=== PATIENT | female | born 1955 | race Caucasian/White ===

== ENCOUNTER 2016-10-31 08:27 | Outpatient (CLI) | payer BC ==
[2016-10-31 08:56] LABS: BASOPHILS % 0.4 (0.0-1.5); EOSINOPHILS % 4.5 % (0.0-6.8); LYMPHOCYTES # 1.4 # k/uL (0.6-4.0); MEAN CORPUSCULAR HEMOGLOBIN 32.9 pg (28.0-34.0); MONOCYTES # 0.2 # k/uL (0.0-0.9); MONOCYTES % 4.8 % (0.0-11.0); NEUTROPHILS # 2.7 # k/uL (1.4-7.7)
[2016-10-31 09:30] LABS: eGFR (African) > 60; eGFR (Non-African) > 60
--- NOTE | 2016-10-31 14:33 | Diagnostic Imaging Report ---
[facility] [id number] [facility].[address] [address] Report Submission Date: Oct 31, 2016 9:34:19 AM RESISTANCE WELDING MACHINE OPERATOR Patient Study Name: HAILE MONTES Date: Oct 31, 2016 8:43:18 AM RESISTANCE WELDING MACHINE OPERATOR Modality Type: CR Gender: F Description: LOWER EXTREMITY : 55 Institution: [facility] Physician SOLEDAD ARGUETA - AYAKA Right knee -two views CLINICAL HISTORY: Chronic pain. FINDINGS: Examination right knee in AP and lateral views demonstrates degenerative changes with narrowing of the joint space worse laterally. There are small lateral and medial osteophytes. Tibial spines are prominent. Patellofemoral space is narrowed with osteophyte formation. There is no fracture. There is mild fullness in suprapatellar region consistent with joint effusion. IMPRESSION: Degenerative changes and joint effusion. No fracture. Electronically signed on Oct 31, 2016 9:34:19 AM RESISTANCE WELDING MACHINE OPERATOR by: Kwasi DE LA GARZA
== END 2016-10-31 08:30 ==
LOC: LAB 08:27
PROVIDERS: ATTEND Family Medicine
DX: M25.561 Pain in right knee (principal); E03.9 Hypothyroidism, unspecified; R53.83 Other fatigue; E78.2 Mixed hyperlipidemia; M25.461 Effusion, right knee
CPT/HCPCS: 36415; 73560; 80053; 80061; 84443; 85025

== ENCOUNTER 2017-11-27 16:05 | Outpatient (CLI) | payer BC ==
[2017-11-27 16:23] LABS: MEAN CORPUSCULAR HEMOGLOBIN 33.9 pg (28.0-34.0); MEAN CORPUSCULAR VOLUME 103.7 fl (80.0-100.0)
[2017-11-27 17:01] LABS: eGFR (African) > 60; eGFR (Non-African) > 60
== END 2017-11-27 16:06 ==
LOC: LAB 16:05
PROVIDERS: ATTEND Family Medicine
DX: E03.9 Hypothyroidism, unspecified (principal); E11.9 Type 2 diabetes mellitus without complications; R79.89 Other specified abnormal findings of blood chemistry
CPT/HCPCS: 36415; 80053; 80061; 80074; 83036; 84443; 85027; 85610; 85730

== ENCOUNTER 2017-12-06 10:28 | Outpatient (CLI) | payer BC ==
[2017-12-06 11:24] LABS: eGFR (African) > 60; eGFR (Non-African) 44
== END 2017-12-06 10:30 ==
LOC: LAB 10:28
PROVIDERS: ATTEND Student in an Organized Health Care Education/Training Program
DX: R74.8 Abnormal levels of other serum enzymes (principal)
CPT/HCPCS: 36415; 80053

== ENCOUNTER 2017-12-18 14:37 | Outpatient (CLI) | payer BC ==
[2017-12-18 15:18] LABS: eGFR (African) > 60; eGFR (Non-African) > 60
== END 2017-12-18 14:40 ==
LOC: LAB 14:37
PROVIDERS: ATTEND Student in an Organized Health Care Education/Training Program
DX: R74.8 Abnormal levels of other serum enzymes (principal)
CPT/HCPCS: 36415; 80053

== ENCOUNTER 2017-12-21 13:27 | Outpatient (CLI) | payer BC ==
[2017-12-21 14:06] LABS: eGFR (African) > 60; eGFR (Non-African) > 60
== END 2017-12-21 13:30 ==
LOC: LAB 13:27
PROVIDERS: ATTEND Student in an Organized Health Care Education/Training Program
DX: R74.8 Abnormal levels of other serum enzymes (principal)
CPT/HCPCS: 36415; 80048; 81401

== ENCOUNTER 2018-01-12 14:10 | Outpatient (CLI) | payer BC ==
[2018-01-12 14:45] LABS: eGFR (African) > 60; eGFR (Non-African) > 60
== END 2018-01-12 14:11 ==
LOC: LAB 14:10
PROVIDERS: ATTEND Student in an Organized Health Care Education/Training Program
DX: K74.60 Unspecified cirrhosis of liver (principal); R74.8 Abnormal levels of other serum enzymes
CPT/HCPCS: 36415; 80053; 82248

== ENCOUNTER 2018-01-15 07:59 | Outpatient (CLI) | payer BC ==
[2018-01-15 08:44] LABS: BASOPHILS % 0.2 (0.0-1.5); EOSINOPHILS % 0.9 % (0.0-6.8); MEAN CORPUSCULAR HEMOGLOBIN 35.2 pg (28.0-34.0); MEAN CORPUSCULAR VOLUME 107.1 fl (80.0-100.0); MONOCYTES % 4.2 % (0.0-11.0); NEUTROPHILS # 3.8 # k/uL (1.4-7.7)
== END 2018-01-15 08:00 ==
LOC: LAB 07:59
PROVIDERS: ATTEND Family Medicine
DX: E11.9 Type 2 diabetes mellitus without complications (principal); R79.89 Other specified abnormal findings of blood chemistry
CPT/HCPCS: 36415; 80061; 85025; 85610; 85730

== ENCOUNTER 2018-05-22 16:15 | Outpatient (CLI) | payer BC ==
[2018-05-22 16:53] LABS: BASOPHILS % 0.5 (0.0-1.5); EOSINOPHILS % 0.7 % (0.0-6.8); MEAN CORPUSCULAR HEMOGLOBIN 35.3 pg (28.0-34.0); MONOCYTES % 4.5 % (0.0-11.0); NEUTROPHILS # 6.4 # k/uL (1.4-7.7)
[2018-05-23 14:51] LABS: eGFR (Non-African) 35
== END 2018-05-22 16:16 ==
LOC: LAB 16:15
PROVIDERS: ATTEND Family Medicine
DX: R42 Dizziness and giddiness (principal)
CPT/HCPCS: 36415; 80053; 85025

== ENCOUNTER 2018-06-05 09:33 | Outpatient (CLI) | payer BC ==
[2018-06-05 11:19] LABS: eGFR (Non-African) > 60
== END 2018-06-05 09:35 ==
LOC: LAB 09:33
PROVIDERS: ATTEND Family Medicine
DX: E87.1 Hypo-osmolality and hyponatremia (principal)
CPT/HCPCS: 36415; 80048

== ENCOUNTER 2018-07-12 16:01 | Outpatient (CLI) | payer BC | END 2018-07-12 16:02 | LOC: LAB 16:01 | PROVIDERS: ATTEND Family Medicine | DX: E03.9 Hypothyroidism, unspecified (principal) | CPT/HCPCS: 84443 ==

== ENCOUNTER 2018-10-25 10:17 | Outpatient (CLI) | payer BC | END 2018-10-25 10:19 | LOC: LAB 10:17 | PROVIDERS: ATTEND Internal Medicine | DX: K74.60 Unspecified cirrhosis of liver (principal) | CPT/HCPCS: 36415; 80076 ==

== ENCOUNTER 2018-11-12 13:17 | Outpatient (CLI) | payer BC | END 2018-11-12 13:19 | LOC: LAB 13:17 | PROVIDERS: ATTEND Internal Medicine | DX: K74.60 Unspecified cirrhosis of liver (principal) | CPT/HCPCS: 36415; 80076 ==

== ENCOUNTER 2019-02-14 12:01 | Outpatient (CLI) | payer OTHER ==
[2019-03-04 13:37] LABS: TOTAL PROTEIN SCANNED REPORT
== END 2019-02-14 12:06 | disposition home or self-care (01) ==
LOC: LAB 12:01
PROVIDERS: ATTEND Internal Medicine
DX: K74.60 Unspecified cirrhosis of liver (principal)
CPT/HCPCS: 36415; 80076